=== PATIENT | male | born 1995 | race Caucasian/White ===

== ENCOUNTER 2019-11-23 07:40 | Emergency (ER) | payer OTHER ==
[~2019-11-23] VITALS: Ht 185.4 cm; Wt 99.0 kg
--- NOTE | 2019-11-23 08:08 | NUR ---
First contact with pt. Pt c/o RUIZ, chills, mild cough progressively worsening since Tuesday. Pt speaking in full sentences, resp even and unlabored. Pt reports took advil before coming in with mild relief of sx. Continuous oxygen and BP monitors applied, all safety measures observed.
[2019-11-23 08:13] VITALS: BP 144/88
--- NOTE | 2019-11-23 08:50 | NUR ---
report from oniel scott
--- NOTE | 2019-11-23 09:04 | NUR ---
Reviewed quarantine instructions. Reviewed what sxs to watch for
== END 2019-11-23 09:06 | disposition home or self-care (01) ==
LOC: ED 08:30
DX: J02.8 Acute pharyngitis due to other specified organisms (principal); B34.9 Viral infection, unspecified
CPT/HCPCS: 36415; 87081; 87635; 87880; 99283